=== PATIENT | female | born 1995 | race African-American/Black ===

== ENCOUNTER 2022-05-09 23:11 | Emergency (ER) | payer SELFPAY ==
[~2022-05-09] VITALS: Ht 165.1 cm; Wt 108.4 kg
[2022-05-10] MEDS ORDERED: INSULIN REGULAR, HUMAN 100 UNIT/1 ML IV ONE (00:45)
[2022-05-10] MEDS ORDERED: SODIUM CHLORIDE 0.9% 1000ML 1,000 ML IV SCH (00:45)
[2022-05-10] MEDS ORDERED: SODIUM CHLORIDE 0.9% 1000ML 1,000 ML ONE (00:46)
[2022-05-10] MEDS ORDERED: INSULIN REGULAR, HUMAN 100 UNIT/1 ML ONE (00:47)
[2022-05-10 02:37] VITALS: BP 140/86
== END 2022-05-10 02:37 | disposition home or self-care (01) ==
LOC: FSED 23:41
DX: O20.0 Threatened abortion (principal); O21.9 Vomiting of pregnancy, unspecified; E11.65 Type 2 diabetes mellitus with hyperglycemia; R10.13 Epigastric pain
CPT/HCPCS: 76801; 80048; 80076; 81003; 81025; 85025; 99283; J7030; J1817

== ENCOUNTER 2023-04-23 19:23 | Emergency (ER) | payer OTHER ==
[~2023-04-23] VITALS: Ht 165.1 cm; Wt 106.1 kg
[2023-04-23] MEDS ORDERED: IBUPROFEN 400 MG TAB PO ONE (20:00)
[2023-04-23 20:35] VITALS: BP 125/78; PULSE 83; RESP 18; TEMP 97.9; O2SAT 100
== END 2023-04-23 20:35 | disposition home or self-care (01) ==
LOC: FSED 19:32
DX: M79.642 Pain in left hand (principal); S60.222A Contusion of left hand, initial encounter; W22.09XA Striking against other stationary object, initial encounter; Y92.89 Other specified places as the place of occurrence of the external cause; E11.9 Type 2 diabetes mellitus without complications
CPT/HCPCS: 99283